=== PATIENT | male | born 1960 | race Caucasian/White ===

== ENCOUNTER → 2018-07-14 11:41 | Outpatient (CLI) | payer OTHER, SELFPAY ==
--- NOTE | 2018-07-14 11:47 | RAD_ITS ---
STUDY: X-RAY CHEST REASON FOR EXAM: Male, 57 years old. DYSPNEA/SOB AND TIGHTNESS IN HIS CHEST. TECHNIQUE: Frontal and lateral view of the chest. COMPARISON: None. FINDINGS: The lungs are clear and expanded. There is no demonstrated pleural abnormality. Normal size heart. Normal mediastinum and delmy. Normal visualized pulmonary arteries. Normal visualized aortic arch and descending thoracic aorta. There are diffuse degenerative changes of the visualized thoracic spine. Normal visualized ribs, clavicles, and shoulders. There is no demonstrated abnormality of the visualized soft tissue structures of the upper abdomen. RAD/Chest PA and Lateral IMPRESSION: There are no acute findings in the chest. Electronically Signed: Yonas Blunt MD at 16:49 EDT , Service support ,
== END ==
PROVIDERS: Family Provider Family Medicine; PCP Family Medicine; Visit Provider Family Medicine
DX: R06.00 Dyspnea, unspecified (principal)
CPT/HCPCS: 71046

== ENCOUNTER → 2018-08-07 16:18 | Outpatient (CLI) | payer OTHER, SELFPAY ==
[2018-08-10 13:51] LABS: C-Peptide 5.9 ng/mL (1.1-4.4)
== END ==
PROVIDERS: Family Provider Family Medicine; PCP Family Medicine; Referring Provider Nurse Practitioner; Visit Provider Nurse Practitioner
DX: E11.9 Type 2 diabetes mellitus without complications (principal)
CPT/HCPCS: 36415; 84681

== ENCOUNTER → 2018-12-02 18:47 | Outpatient (CLI) | payer OTHER, SELFPAY ==
[2018-08-26 16:17] VITALS: BMI 22.6
[2018-12-02 21:32] LABS: Probe Check PASS; Staph aureus DNA By PCR NEGATIVE (Negative)
[2018-12-02 21:33] LABS: M R Staph aureus DNA By PCR Negative (Negative)
== END ==
PROVIDERS: Family Provider Family Medicine; PCP Family Medicine; Referring Provider Podiatrist; Visit Provider Podiatrist
DX: L97.521 Non-pressure chronic ulcer of other part of left foot limited to breakdown of skin (principal); L97.522 Non-pressure chronic ulcer of other part of left foot with fat layer exposed
CPT/HCPCS: 87070; 87075; 87077; 87186; 87205; 87640

== ENCOUNTER → 2019-12-08 18:00 | Outpatient (CLI) | payer OTHER, SELFPAY ==
[2018-08-26 16:17] VITALS: BMI 22.6
[2019-12-08 20:09] LABS: M R Staph aureus DNA By PCR Negative (Negative); Probe Check PASS; Staph aureus DNA By PCR POSITIVE (Negative)
== END ==
PROVIDERS: PCP Family Medicine; Referring Provider Podiatrist; Visit Provider Podiatrist
DX: L97.522 Non-pressure chronic ulcer of other part of left foot with fat layer exposed (principal)
CPT/HCPCS: 87070; 87075; 87077; 87186; 87205; 87640

== ENCOUNTER → 2020-03-04 13:53 | Outpatient (CLI) | payer OTHER, SELFPAY ==
--- NOTE | 2020-03-04 14:01 | ART_ITS ---
Reason For Study: PVD, Ulcer left foot Procedure A bilateral lower extremity continuous wave Doppler with analog waveform analysis,segmental pressures,and ankle brachial indexes without exercise. Left Segmental Pressures Left brachial= 138mmHg. Left posterior tibial artery = 199mmHg. Left dorsalis pedis artery = 207mmHg. Left digit = 152 mmHg. The left dorsalis pedis waveforms are triphasic. The left posterior tibial artery waveforms are triphasic. Right Segmental Pressures Right brachial= 136mmHg. Right posterior tibial artery = 187mmHg. Right dorsalis pedis artery = 171mmHg. Right digit = 139 mmHg. The right dorsalis pedis waveforms are triphasic. The right posterior tibial artery waveforms are triphasic. Indices The right ankle brachial index by the dorsalis pedis is 1.24. The right ankle brachial index by the posterior tibial artery is 1.36. The right digital-brachial index is 1.01. The right wrist-brachial index is 1.10. The left ankle brachial index by the dorsalis pedis is 1.50. The left ankle brachial index by the posterior tibial artery is 1.44. Interpretation Summary Triphasic Doppler waveforms are noted at ankle level bilaterally. Pulse-volume recordings appear satisfactory at all levels bilaterally, including low-thigh, calf, ankle, and digital levels. The resting right ankle-brachial index is normal. The resting left ankle-brachial index is supra-normal. Digital-brachial indices are normal bilaterally. There is evidence of arterial calcification at ankle level on the left. There is no evidence of significant arterial occlusive disease in the lower extremities bilaterally. Ordering Physician: Corry Hilton Referring Physician: Danish Toribio Performed By: Joanne Briceño RVT
== END ==
LOC: CVS 13:55
PROVIDERS: PCP Family Medicine; Visit Provider Podiatrist
DX: I73.89 Other specified peripheral vascular diseases (principal); L97.522 Non-pressure chronic ulcer of other part of left foot with fat layer exposed
CPT/HCPCS: 93923

== ENCOUNTER → 2020-07-05 15:59 | Outpatient (CLI) | payer OTHER, SELFPAY ==
[2018-08-26 16:17] VITALS: BMI 22.6
[2020-07-05 17:04] LABS: Absolute Lymphocyte Count 1.78 X10^3/uL (0.83-4.51); Absolute Neutrophil Count 6.6 X10^3/uL (2.0-7.7); Basophil# 0.04 X10^3/uL; Basophil% 0.4 % (0-1); Eosinophil# 0.07 X10^3/uL; Eosinophils% 0.8 % (0-5); Hematocrit 39.7 % (40-54); Hemoglobin 13.1 g/dL (13.0-16.5); Lymphocyte # 1.78 X10^3/ul (4.0); Lymphocyte % 19.6 % (19-41); Mean Corpuscular Hgb 30.8 pg (27.0-32.0); Mean Corpuscular Volume 93.2 fL (80-94); Mean Platelet Vol. 11.4 fl (6.2-12.0); Monocyte% 6.6 % (0-10); NRBC Flagged by Analyzer 0 % (0-5); Neutrophil # 6.55 X10^3/uL (2.7-7.7); Neutrophil % 72.3 % (47-70); Platelet Count 213 K/mm3 (150-450); RBC Distribution Width CV 12.5 % (11.6-14.6); RBC Distribution Width SD 41.6 fl (35.1-43.9); Red Blood Count 4.26 M/mm3 (4.6-6.2); White Blood Count 9.1 K/mm3 (4.4-11.0)
[2020-07-05 17:59] LABS: AST(SGOT) 24 U/L (15-37); Alanine Aminotransfer ALT/SGPT 40 U/L (16-61); Albumin, Serum 4.1 g/dL (3.2-5.0); Alkaline Phosphatase 90 U/L (45-117); Anion Gap 4 (5-15); BUN 28 mg/dL (7-18); BUN/Creat Ratio 18.9 RATIO (10-20); Calcium,Total 9.4 mg/dL (8.5-10.1); Chloride 102 mmol/L (98-107); Creatinine, Serum 1.48 mg/dL (0.70-1.30); EST Glomerular Filtration Rate 52 mL/min (>60); Est Glom Filt Rate - Afr Amer 63 mL/min (>60); Globulin 4.3 g/dL (2.2-4.2); Glucose 197 mg/dL (74-106); Potassium 4.8 mmol/L (3.5-5.1); Protein, Total 8.4 g/dL (6.4-8.2); Sodium Level 134 mmol/L (136-145)
== END ==
PROVIDERS: PCP Family Medicine; Referring Provider Podiatrist; Visit Provider Podiatrist
DX: E11.621 Type 2 diabetes mellitus with foot ulcer (principal); L97.512 Non-pressure chronic ulcer of other part of right foot with fat layer exposed
CPT/HCPCS: 36415; 80053; 83036; 85025

== ENCOUNTER 2020-07-12 08:33 | Emergency (ER) | payer OTHER, SELFPAY ==
[2020-07-12 08:34] VITALS: BP 148/77; PULSE 104; RESP 19; TEMP 36.9; O2SAT 97; BMI 24.3
--- NOTE | 2020-07-12 08:48 | CT_ITS ---
STUDY: CT BRAIN WITHOUT CONTRAST REASON FOR EXAM: Male, 59 years old. ACUTE ALTERED MENTAL STATUS, DIZZY, BLURRED VISION, HX- MENIERE''S DZ, A-FIB, RA,DB RADIATION DOSAGE (If Supplied By Facility): CTDIvol = ( 44.99 ) mGy, DLP = ( 812.98 ) mGycm TECHNIQUE: Transaxial CT imaging of the brain was performed without administration of intravenous contrast material. Individualized dose optimization techniques were used for this CT. COMPARISON: No relevant priors. FINDINGS: Normal soft tissue structures. Normal calvarium. Normal size ventricles and extra-axial spaces for the patient''s age. Normal white matter tracts of the cerebral hemispheres. Normal basal ganglia and thalami. Normal brainstem. Normal cerebellum. There is no intracranial hemorrhage. There are no findings of an acute ischemic infarction. Normal visualized paranasal sinuses. CT/Brain/Head without Contrast IMPRESSION: Normal unenhanced CT scan of the brain. Electronically Signed: Jose Leon, at 10:04 EDT , Service support ,
--- NOTE | 2020-07-12 08:48 | EKG12_ITS ---
Test Reason : DIZZINESS Blood Pressure : / mmHG Vent. Rate : 094 BPM Atrial Rate : 094 BPM P-R Int : 138 ms QRS Dur : 086 ms QT Int : 338 ms P-R-T Axes : 045 032 041 degrees QTc Int : 422 ms Normal sinus rhythm Normal ECG Confirmed by ARNULFO AREVALO, JASON ([id number]), script editor KATHLEEN MAYERS ([id number]) on 07/14/2020 9:35:43 AM Referred By: OBDULIA Confirmed By:JASON ARREDONDO MD
[2020-07-12 09:29] LABS: Absolute Neutrophil Count 18.9 X10^3/uL (2.0-7.7); Basophil# 0.05 X10^3/uL; Basophil% 0.2 % (0-1); Eosinophil# 0.05 X10^3/uL; Eosinophils% 0.2 % (0-5); Hematocrit 42.4 % (40-54); Hemoglobin 13.5 g/dL (13.0-16.5); Lymphocyte % 2.4 % (19-41); Mean Corp Hgb Conc 31.8 g/dL (32-36); Mean Corpuscular Hgb 29.3 pg (27.0-32.0); Mean Corpuscular Volume 92.2 fL (80-94); Mean Platelet Vol. 11.9 fl (6.2-12.0); Monocyte# 0.94 X10^3/uL; Monocyte% 4.6 % (0-10); NRBC Flagged by Analyzer 0 % (0-5); Neutrophil # 18.94 X10^3/uL (2.7-7.7); Neutrophil % 91.9 % (47-70); POSITIVE DIFFERENTIAL YES; POSITIVE MORPHOLOGY YES; Platelet Count 196 K/mm3 (150-450); RBC Distribution Width CV 12.5 % (11.6-14.6); RBC Distribution Width SD 42.5 fl (35.1-43.9); White Blood Count 20.6 K/mm3 (4.4-11.0)
[2020-07-12 09:35] LABS: Differential Indicated SCAN CRITERIA MET
[2020-07-12 09:36] LABS: Anion Gap 9 (5-15); BUN 37 mg/dL (7-18); BUN/Creat Ratio 19.2 RATIO (10-20); Calcium,Total 9.8 mg/dL (8.5-10.1); Chloride 98 mmol/L (98-107); Creatinine, Serum 1.93 mg/dL (0.70-1.30); EST Glomerular Filtration Rate 38 mL/min (>60); Est Glom Filt Rate - Afr Amer 46 mL/min (>60); Estimated Creatinine Clearance 51.85 ml/min; Glucose 427 mg/dL (74-106); Potassium 5.1 mmol/L (3.5-5.1); Sodium Level 130 mmol/L (136-145)
[2020-07-12 09:38] LABS: Bacteria 0 SEEN /hpf (None Seen); Mucous, Urine 0 SEEN /hpf (<or=2+); Red Blood Cells-Urine 0 SEEN /hpf (0-5); White Blood Cells 0 SEEN /hpf (0-5)
[2020-07-12 09:45] LABS: Color, Urine Yellow (Yellow); Glucose, Dipstick 1000 mg/dl (Normal); Ketone-Dipstick 15 mg/dl (Negative); Leukocyte Esterase-Dipstick Negative /ul (Negative); Nitrite-Dipstick Negative (Negative); Occult Blood-Urine Negative /ul (Negative); Protein-Dipstick 30 mg/dl (Negative); Urine Bilirubin Dipstick Negative (Negative); Urine Clarity Sl. Cloudy (Clear); Urine Urobilinogen Normal (Normal)
[2020-07-12 09:51] LABS: Squamous Epithelial Cells - UA 0-5 SEEN /hpf (0-5)
[2020-07-12 10:00] VITALS: BP 104/73; BP 110/69; BP 119/66; PULSE 88; PULSE 94
--- NOTE | 2020-07-12 10:08 | ED.DCSUM_ITS ---
History of Present Illness Chief Complaint: Dizziness Detail of Chief Complaint: Confusion, blurred vision, dizziness Onset: Today Context: Sudden Onset Timing: Continuous Quality: Patient unable to define dizziness Location: Not applicable Current Severity: Mild Maximum Severity: Moderate Worsened by: Nothing Relieved by: Nothing Associated Symptoms: Diaphoresis Narrative: Patient is a 59-year-old male with multiple medical problems who presents because of confusion. He states he felt confused when he woke this morning. While at work he did not know where he was. Coworkers state he was pale and diaphoretic. He denied spinning sensation. He denied double vision, loss of vision or partial loss of vision, he did report change in vision. He did not notice any change in his voice or speech. He denies trouble swallowing. He den ies problems with balance or coordination. He denied paresthesia, anesthesia or motor weakness. He did report mild headache. 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 He denies decreased hearing. He denies ear pain. He did report some discomfort in his neck 2 days ago. There is no history of trauma. He denied vomiting or diarrhea. He denied black or maroon stool. He denies urologic symptoms. Patient denies chest discomfort of any type. There is no history of VTE. He denies leg pain, swelling or discoloration. He denies shortness of breath. He denies wheezing. Patient stated last night he had shaking chills and felt cold. He did not take his temperature. Prior similar symptoms: No Recent Illness/Hospitalization: No - Past Medical History (1) History of rheumatoid arthritis Status: Acute (2) History of Meniere's disease Status: Acute (3) History of type 2 diabetes mellitus Status: Acute (4) History of atrial fibrillation Status: Acute (5) History of Joaquin de la Tourette's syndrome Status: Acute (6) History of venous thromboembolism Status: Acute Past Medical History - Allergies and Home Meds Allergies/Adverse Reactions: Allergies Penicillins Allergy (Severe, Verified 07/12/20 11:19) Unknown mmmm, I'd pretty much fall over . prednisone Allergy (Unknown, Verified 07/12/20 08:43) Unknown shellfish derived Allergy (Unknown, Verified 07/12/20 08:43) Unknown Primary Care Physician: Danish Toribio MD [Primary Care Provider] - 1 Day for another exam Prior records reviewed: Yes Lives: Alone - Patient is legally from his spouse Smoking Status: Never smoker Alcohol: None Drugs: None Review of Systems General: Denies: Chills, Fever, Malaise, Subjective Eyes: Reports: Blurred Vision - bilaterally. Denies: Diplopia ENT: Denies: Bilateral ear pain, Rhinorrhea, Sore throat Cardiovascular: Denies: Chest pain, Palpitations Respiratory: Denies: Cough, Dyspnea on exertion, Orthopnea, Paroxysmal nocturnal dyspnea Gastrointestinal: Reports: Nausea. Denies: Abdominal pain, Vomiting, Diarrhea, Constipation, Melena, Hematochezia, -, - Genitourinary: Denies: Dysuria, Hematuria, Frequency Musculoskeletal: Denies: Myalgias, Arthralgias, Neck pain, Back pain, Swelling, Extremity Pain, -, - Skin: Denies: Rash, Wounds Neurological: Reports: Headache. Denies: Weakness, Parasthesia Psych: Reports: Depression, Anxiety Hematologic: Reports: Easy bruising Allergy: Denies: Uticaria Physical Exam Vital Signs/Narrative: Vital Signs Temp Pulse Pulse Pulse Pulse Resp BP 07/12/20 10:00 88 88 94 07/12/20 08:34 98.4 F 104 H 19 H 148/77 H BP BP BP Pulse Ox 07/12/20 10:00 119/66 110/69 104/73 07/12/20 08:34 97 Inital Vital Signs reviewed: Yes General: Well nourished, Well developed Head: Normocephalic, Atraumatic Eyes: Perrl, EOMI. Negative for: Pale conjunctiva, Scleral icterus ENT: No rhinorrhea, TM's clear Neck: Supple, Nontender. Negative for: No lymphadenopathy, No JVD Cardiovascular: Regular rhythm, No murmurs, Normal S1, Normal S2, Tachycardia Respiratory: No distress, CTA bilaterally, Chest nontender Abdomen: Soft, Nontender, Nondistended, Normal bowel sounds, No masses Rectal: Deferred Back: Nontender, Normal Inspection Extremities: Nontender Skin: No Trauma, Pallor. Negative for: Cyanosis, Diaphoresis, Jaundice Neurological: Alert, Oriented x3, Cranial nerves II-XII grossly intact, Normal Strength, Normal Sensation, Normal DTR, - - Negative clonus and Babinski sign Psychological: Depressed Diagnostic/Tx/Re-eval Chest X-Ray - ED: 2 View, Read by ED Physician, Normal, Heart, Lungs, Mediastinum, Bony Structures, No Acute Disease, Chronic Changes - Mild degenerative changes of the dorsal vertebral bodies. Impressions Brain CT 07/12/20 08:48 IMPRESSION: Normal unenhanced CT scan of the brain. Electronically Signed: Jose Leon, at 10:04 EDT , Service support , 07/12/20 08:48 Brain/Head without Contrast [CT] Stat 07/12/20 10:21 Chest PA and Lateral [RAD] Stat Laboratory Results 07/12/20 07/12/20 07/12/20 08:35 08:35 09:25 WBC 20.6 H RBC 4.60 Hgb 13.5 Hct 42.4 MCV 92.2 MCH 29.3 MCHC 31.8 L RDW Std Deviation 42.5 RDW Coeff of Tonja 12.5 Plt Count 196 MPV 11.9 Immature Gran % (Auto) 0.700 Neut % (Auto) 91.9 H Lymph % (Auto) 2.4 L Preston % (Auto) 4.6 Eos % (Auto) 0.2 Baso % (Auto) 0.2 Absolute Neuts (auto) 18.9 H Absolute Lymphs (auto) 0.50 L Nucleated RBC % 0 Sodium 130 L Potassium 5.1 Chloride 98 Carbon Dioxide 23.0 Anion Gap 9 BUN 37 H Creatinine 1.93 H Estim Creat Clear Calc 51.85 Est GFR (MDRD) Af Amer 46 L Est GFR (MDRD) Non-Af 38 L BUN/Creatinine Ratio 19.2 Glucose 427 H Lactic Acid 2.0 Calcium 9.8 Urine Color Urine Clarity Urine pH Ur Specific [place] Urine Protein Urine Glucose (UA) Urine Ketones Urine Occult Blood Urine Nitrite Urine Bilirubin Urine Urobilinogen Ur Leukocyte Esterase Urine RBC Urine WBC Ur Squamous Epith Cells Urine Bacteria Urine Mucus 07/12/20 09:25 WBC RBC Hgb Hct MCV MCH MCHC RDW Std Deviation RDW Coeff of Tonja Plt Count MPV Immature Gran % (Auto) Neut % (Auto) Lymph % (Auto) Preston % (Auto) Eos % (Auto) Baso % (Auto) Absolute Neuts (auto) Absolute Lymphs (auto) Nucleated RBC % Sodium Potassium Chloride Carbon Dioxide Anion Gap BUN Creatinine Estim Creat Clear Calc Est GFR (MDRD) Af Amer Est GFR (MDRD) Non-Af BUN/Creatinine Ratio Glucose Lactic Acid Calcium Urine Color Yellow Urine Clarity Sl. Cloudy Urine pH 5.0 Ur Specific [place] 1.020 Urine Protein 30 H Urine Glucose (UA) 1000 H Urine Ketones 15 H Urine Occult Blood Negative Urine Nitrite Negative Urine Bilirubin Negative Urine Urobilinogen Normal Ur Leukocyte Esterase Negative Urine RBC 0 SEEN Urine WBC 0 SEEN Ur Squamous Epith Cells 0-5 SEEN Urine Bacteria 0 SEEN Urine Mucus 0 SEEN - EKG Initial EKG Interpretation: Sinus Rhythm - Sinus rhythm with a ventricular rate 94. GA interval is 138 ms. QRS duration 86 ms. QT duration 338 ms. Gaston is normal. The EKG is normal. - Medical Decision Making Patient with vague-like symptoms. Need to rule out orthostatic hypotension, anemia due to GI bleed, electrolyte abnormality. With the patient complaining of shaking chills need to rule out infectious etiology. There is vague symptoms with by ocular blurred vision and dizziness CT of the head was obtained to rule out stroke, intracranial bleed, mass. Patient's allergy to penicillin is I nearly drop over . In light of a serious reaction will treat with doxycycline which will cover streptococcal organisms, staphylococcal organisms, anaerobes as well as atypical organisms that may cause pneumonia. He was treated with antibiotics because of his high white count and reported rigors his primary care physician Dr. Amin was paged to inform him that he would be going home and for follow-up in 1 to 2 days and follow-up on blood cultures. Dr. Montenegro'S nurse called back. She was informed of patient's history, physical findings, concerns and need for follow-up. Dr. Amin is available tomorrow. Patient has been instructed to call the office today for an appointment tomorrow. ED Disposition - Plan for ED Patient: Disposition: Home or Assisted Living Diagnosis: Neutrophilic leukocytosis, Rigors, Dizziness of unknown cause, Acute renal insufficiency Instructions: ED Dizziness UKO, ED Insufficiency Renal Prescriptions: Doxycycline 100 mg PO BID #14 cap Transmission Status: Received by [id number] Referrals: Danish Toribio MD [Primary Care Provider] - 1 Day for another exam Additional Instructions: Call Dr. Danish Toribio's office this afternoon for follow-up appointment tomorrow.
[2020-07-12 10:33] VITALS: BP 127/71; PULSE 86; PULSE 87; RESP 19; O2SAT 97
--- NOTE | 2020-07-12 11:05 | RAD_ITS ---
STUDY: X-RAY CHEST REASON FOR EXAM: Male, 59 years old. Blurred vision, dizziness, shortness of breath TECHNIQUE: PA and lateral views of the chest. COMPARISON: Comparison is made with prior study dated 07/14/2018. FINDINGS: The lungs are clear and expanded. There is no demonstrated pleural abnormality. Normal size heart. Normal mediastinum and delmy. Normal visualized pulmonary arteries. Normal visualized aortic arch and descending thoracic aorta. There are mild degenerative changes of the visualized thoracic spine. Normal visualized ribs, clavicles, and shoulders. There is no demonstrated abnormality of the visualized soft tissue structures of the upper abdomen. RAD/Chest PA and Lateral IMPRESSION: Normal x-ray examination of the chest. Electronically Signed: Jose Leon, at 11:21 EDT , Service support ,
[2020-07-12] MEDS: Doxycycline 100 MG CAPSULE PO (11:53)
[2020-07-12 11:57] VITALS: BP 131/79; PULSE 88; RESP 13; O2SAT 99
[2020-07-12 13:35] LABS: Reflex Lactate? Y
--- NOTE | 2020-07-14 07:02 | ED.RN ---
Dr Gutierres office called about positive blood cultures. Office is supposed to follow up with him.
== END 2020-07-12 11:59 | disposition home or self-care (01) ==
PROVIDERS: Emergency Provider Emergency Medicine; PCP Family Medicine
DX: D72.828 Other elevated white blood cell count (principal); R68.89 Other general symptoms and signs; R42 Dizziness and giddiness; N28.9 Disorder of kidney and ureter, unspecified; Z88.0 Allergy status to penicillin; E11.9 Type 2 diabetes mellitus without complications; M06.9 Rheumatoid arthritis, unspecified; F95.2 Tourette's disorder; Z86.718 Personal history of other venous thrombosis and embolism
CPT/HCPCS: 70450; 71046; 80048; 81001; 83605; 85025; 87040; 87077; 87186; 93005; 99285; A4216

== ENCOUNTER → 2020-07-19 15:56 | Outpatient (CLI) | payer OTHER, SELFPAY ==
[2020-07-12 08:34] VITALS: BMI 24.3
[2020-07-19 17:32] LABS: Absolute Neutrophil Count 6.8 X10^3/uL (2.0-7.7); Basophil# 0.04 X10^3/uL; Basophil% 0.4 % (0-1); Eosinophil# 0.06 X10^3/uL; Eosinophils% 0.7 % (0-5); Hematocrit 39.7 % (40-54); Hemoglobin 12.5 g/dL (13.0-16.5); Lymphocyte % 17.7 % (19-41); Mean Corp Hgb Conc 31.5 g/dL (32-36); Mean Corpuscular Hgb 28.5 pg (27.0-32.0); Mean Corpuscular Volume 90.4 fL (80-94); Mean Platelet Vol. 11.3 fl (6.2-12.0); Monocyte# 0.49 X10^3/uL; Monocyte% 5.4 % (0-10); NRBC Flagged by Analyzer 0 % (0-5); Neutrophil # 6.78 X10^3/uL (2.7-7.7); Neutrophil % 74.8 % (47-70); Platelet Count 293 K/mm3 (150-450); RBC Distribution Width CV 12.3 % (11.6-14.6); RBC Distribution Width SD 41.1 fl (35.1-43.9); Red Blood Count 4.39 M/mm3 (4.6-6.2); White Blood Count 9.1 K/mm3 (4.4-11.0)
[2020-07-19 17:55] LABS: Anion Gap 9 (5-15); BUN 29 mg/dL (7-18); BUN/Creat Ratio 22.3 RATIO (10-20); Calcium,Total 9.4 mg/dL (8.5-10.1); Chloride 98 mmol/L (98-107); EST Glomerular Filtration Rate 60 mL/min (>60); Est Glom Filt Rate - Afr Amer 73 mL/min (>60); Glucose 182 mg/dL (74-106); Potassium 4.5 mmol/L (3.5-5.1); Sodium Level 132 mmol/L (136-145)
== END ==
PROVIDERS: PCP Family Medicine; Visit Provider Family Medicine
DX: N18.9 Chronic kidney disease, unspecified (principal); D72.829 Elevated white blood cell count, unspecified
CPT/HCPCS: 36415; 80048; 85025

== ENCOUNTER 2020-08-23 16:03 | Outpatient (RCR) | payer OTHER, SELFPAY | END 2020-08-23 23:59 | disposition home or self-care (01) | LOC: DC 16:03 | PROVIDERS: PCP Family Medicine; Visit Provider Podiatrist | DX: Z71.3 Dietary counseling and surveillance (principal); E11.42 Type 2 diabetes mellitus with diabetic polyneuropathy; E46 Unspecified protein-calorie malnutrition; E11.621 Type 2 diabetes mellitus with foot ulcer; L97.512 Non-pressure chronic ulcer of other part of right foot with fat layer exposed; L97.522 Non-pressure chronic ulcer of other part of left foot with fat layer exposed | CPT/HCPCS: 97802 ==

== ENCOUNTER → 2020-12-12 11:42 | Outpatient (CLI) | payer OTHER, SELFPAY ==
[2020-12-12 12:34] LABS: Anion Gap 3 (5-15); BUN 29 mg/dL (7-18); BUN/Creat Ratio 21.3 RATIO (10-20); Calcium,Total 9.1 mg/dL (8.5-10.1); Chloride 101 mmol/L (98-107); Creatinine, Serum 1.36 mg/dL (0.70-1.30); EST Glomerular Filtration Rate 57 mL/min (>60); Est Glom Filt Rate - Afr Amer 69 mL/min (>60); Glucose 404 mg/dL (74-106); Potassium 4.8 mmol/L (3.5-5.1); Sodium Level 134 mmol/L (136-145)
== END ==
PROVIDERS: PCP Family Medicine; Visit Provider Family Medicine
DX: E87.5 Hyperkalemia (principal)
CPT/HCPCS: 36415; 80048

== ENCOUNTER → 2021-10-24 15:25 | Outpatient (CLI) | payer OTHER, SELFPAY ==
[2021-10-24 16:21] LABS: Absolute Neutrophil Count 5.5 X10^3/uL (2.0-7.7); Basophil# 0.04 X10^3/uL; Basophil% 0.5 % (0-1); Eosinophil# 0.11 X10^3/uL; Eosinophils% 1.4 % (0-5); Hematocrit 39.7 % (40-54); Hemoglobin 13.1 g/dL (13.0-16.5); Lymphocyte % 20.4 % (19-41); Mean Corpuscular Hgb 30.1 pg (27.0-32.0); Mean Corpuscular Volume 91.3 fL (80-94); Mean Platelet Vol. 11.5 fl (6.2-12.0); Monocyte% 7.6 % (0-10); NRBC Flagged by Analyzer 0 % (0-5); Neutrophil # 5.48 X10^3/uL (2.7-7.7); Neutrophil % 69.8 % (47-70); Platelet Count 196 K/mm3 (150-450); RBC Distribution Width CV 11.9 % (11.6-14.6); RBC Distribution Width SD 39.9 fl (35.1-43.9); Red Blood Count 4.35 M/mm3 (4.6-6.2); White Blood Count 7.9 K/mm3 (4.4-11.0)
[2021-10-24 17:29] LABS: Vitamin D,25 Hydroxy 13.9 ng/mL
[2021-10-24 17:42] LABS: ALB/GLOB Ratio 0.9 RATIO (0.9-2.4); AST(SGOT) 29 U/L (15-37); Alanine Aminotransfer ALT/SGPT 63 U/L (16-61); Albumin, Serum 3.8 g/dL (3.2-5.0); Alkaline Phosphatase 93 U/L (45-117); Anion Gap 7 (5-15); BUN 23 mg/dL (7-18); BUN/Creat Ratio 19.7 RATIO (10-20); Chloride 102 mmol/L (98-107); Cholesterol 157 mg/dL (200); Creatinine, Serum 1.17 mg/dL (0.70-1.30); EST Glomerular Filtration Rate 68 mL/min (>60); Est Glom Filt Rate - Afr Amer 82 mL/min (>60); Globulin 4.2 g/dL (2.2-4.2); Glucose 133 mg/dL (74-106); High Density Lipoprotein 45 mg/dL; Potassium 4.4 mmol/L (3.5-5.1); Sodium Level 135 mmol/L (136-145); Thyroid Stim Hormone (TSH) 2.64 uIU/mL (0.358-3.74); Triglycerides 92 mg/dL; Very Low Density Lipoprotein 18 mg/dL (5-40)
== END ==
PROVIDERS: PCP Family Medicine; Visit Provider Family Medicine
DX: E55.9 Vitamin D deficiency, unspecified (principal); I10 Essential (primary) hypertension; E87.5 Hyperkalemia; E78.5 Hyperlipidemia, unspecified
CPT/HCPCS: 36415; 80053; 80061; 82306; 84443; 85025

== ENCOUNTER → 2023-06-15 | Outpatient (CLI) | payer OTHER, SELFPAY ==
[2023-06-15 09:34] LABS: Erythrocyte Sedimentation Rate 15 mm/hr (0-20)
[2023-06-15 09:35] LABS: Absolute Lymphocyte Count 1.57 X10^3/uL (0.83-4.51); Basophil# 0.07 X10^3/uL; Basophil% 0.8 % (0-1); Eosinophil# 0.24 X10^3/uL; Eosinophils% 2.8 % (0-5); Hematocrit 42.3 % (40-54); Hemoglobin 13.4 g/dL (13.0-16.5); Lymphocyte # 1.57 X10^3/ul (0.83-4.51); Lymphocyte % 18.6 % (19-41); Mean Corp Hgb Conc 31.7 g/dL (32-36); Mean Corpuscular Hgb 30.5 pg (27.0-32.0); Mean Corpuscular Volume 96.4 fL (80-94); Monocyte# 0.56 X10^3/uL; Monocyte% 6.6 % (0-10); NRBC Flagged by Analyzer 0 % (0-5); Neutrophil # 5.97 X10^3/uL (2.7-7.7); Neutrophil % 70.7 % (47-70); Platelet Count 190 K/mm3 (150-450); RBC Distribution Width CV 12.4 % (11.6-14.6); RBC Distribution Width SD 43.5 fl (35.1-43.9); Red Blood Count 4.39 M/mm3 (4.6-6.2); White Blood Count 8.5 K/mm3 (4.4-11.0)
[2023-06-15 09:37] LABS: Microalbumin,Random Urine 34.8 mg/L (NO RANGE EST.); Microalbumin:Creatinine Ratio 25.6 mg/g CRE (<30 mg/g CRE)
[2023-06-15 09:42] LABS: ALB/GLOB Ratio 0.9 RATIO (0.9-2.4); AST(SGOT) 29 U/L (15-37); Alanine Aminotransfer ALT/SGPT 60 U/L (16-61); Albumin, Serum 3.5 g/dL (3.2-5.0); Alkaline Phosphatase 84 U/L (45-117); Anion Gap 2 (5-15); BUN 25 mg/dL (7-18); CRP < 2.90 mg/L (0.0-3.0); Chloride 105 mmol/L (98-107); Cholesterol 160 mg/dL (200); Creatinine, Serum 1.56 mg/dL (0.70-1.30); EST Glomerular Filtration Rate 48 mL/min (>60); Est Glom Filt Rate - Afr Amer 59 mL/min (>60); Globulin 3.9 g/dL (2.2-4.2); Glucose 243 mg/dL (74-106); High Density Lipoprotein 42 mg/dL; Protein, Total 7.4 g/dL (6.4-8.2); Sodium Level 133 mmol/L (136-145); Triglycerides 101 mg/dL; Very Low Density Lipoprotein 20 mg/dL (5-40)
== END | disposition home or self-care (01) ==
LOC: LAB 09:02
PROVIDERS: PCP Family Medicine; Referring Provider Family Medicine; Visit Provider Family Medicine
DX: E11.65 Type 2 diabetes mellitus with hyperglycemia (principal); I10 Essential (primary) hypertension
CPT/HCPCS: 36415; 80053; 80061; 82043; 82570; 85025; 85652; 86140

== ENCOUNTER → 2025-06-08 | Outpatient (CLI) | payer OTHER, SELFPAY ==
--- NOTE | 2025-06-08 09:06 | STEWCON_ITS ---
Reason For Study Reason For Study: CHEST PAIN Stress Results Protocol: Dobutamine Protocol With Definity Maximum Predicted HR: 158 bpm Target HR: 134 bpm % Maximum Predicted HR: 86 % DurationHeart Rate Stage (mm:ss) (bpm) BP Dose Comment BASELINE 74 151/77 3 CC DEFINITY FOR ENTIRE TEST STAGE 1 4:40 117 155/6310.00 STAGE 2 1:30 136 145/5720.00 RECOVERY 90 123/69 Stress Duration: 6:10 mm:ss Maximum Stress HR: 136 bpm Baseline Echocardiogram Findings Stress Echo Wall motion Data Resting WM Intermediate WM Stress WM ECHO/Stress Test Echo W/Contrast Interpretation Summary Dobutamine stress echocardiogram. 64-year-old man with a history of chest pain. Resting EKG demonstrates sinus rhythm with a rate of 75 bpm no intervals are no joel. Dobutamine was infused at MS 10 mcg/kg/min and increasing at 3-minute aliquots to a peak of 20 mcg/kg/min. The maximum heart rate attained was 139 bpm which was 92% of max impacted heart rate the maximum workload was 1 metabolic e quivalent. At rest there were no ST or T wave changes noted to suggest ischemia and at peak infusion nonspecific ST maier ges were noted we did not meet the criteria for ischemia. No clinical angina was noted. The peak blood pressure wa s 155/63 mmHg. Dobutamine stress echo. The resting echocardiogram demonstrated preserved eject ion fraction of 65% this was performed with Definity enhancement. At peak infusion there was thickening of all bryant c ontractility improved and ejection fraction improved to 75% with no wall motion abnormalities to suggest ischemia. Conclusion: Dobutamine stress echocardiogram with no wall motion abnormalities present. Ordering Physician: Ruby Peoples Referring Physician: Ruby Peoples Performed By: Tabatha Roach, JESSICA, RVT
== END | disposition home or self-care (01) ==
PROVIDERS: PCP Family Medicine; Referring Provider Family Medicine; Visit Provider Family Medicine
DX: R07.9 Chest pain, unspecified (principal)
CPT/HCPCS: 93017; 93350; Q9957; A4216; C8928